=== PATIENT | male | born 1980 | race Caucasian/White ===

== ENCOUNTER 2024-02-14 07:08 | Day surgery (SDC) | payer OTHER ==
[~2024-02-14] VITALS: Ht 177.8 cm; Wt 122.5 kg
[2024-02-14] MEDS ORDERED: DIPHENHYDRAMINE INJ 50 MG/ML VIAL ONE (09:23)
[2024-02-14] MEDS ORDERED: MEPERIDINE 100 MG INJ. 100 MG/ML VIAL ONE (09:25)
[2024-02-14] MEDS ORDERED: MIDAZOLAM HCL 5 MG/5 ML VIAL ONE ×2 (09:25→09:38)
[2024-02-14 11:25] VITALS: O2SAT 96
[2024-02-14 12:14] VITALS: BP_SYST 112; PULSE 74; RESP 17
== END 2024-02-14 11:09 | disposition home or self-care (01) ==
LOC: SDS 07:08 → SMU 07:22 → SDS 11:09
PROVIDERS: ATTEND Student in an Organized Health Care Education/Training Program
DX: Z12.11 Encounter for screening for malignant neoplasm of colon (principal); K62.1 Rectal polyp; K64.8 Other hemorrhoids; K64.4 Residual hemorrhoidal skin tags; E78.5 Hyperlipidemia, unspecified; Z98.1 Arthrodesis status; Z98.890 Other specified postprocedural states; Z79.899 Other long term (current) drug therapy; Z80.0 Family history of malignant neoplasm of digestive organs
CPT/HCPCS: 45385; 99152; 88305; G0378; J1200; J2250; J2175